=== PATIENT | female | born 1980 | race Caucasian/White ===

== ENCOUNTER 2020-04-01 11:01 | Emergency (ER) | payer OTHER ==
[~2020-04-01] VITALS: Ht 160 cm; Wt 58.0 kg
[2020-04-01 11:11] VITALS: BP 134/79
--- NOTE | 2020-04-01 11:13 | PHYS DOC ---
Past History Past Medical History: No Pertinent History Smoking: Non-smoker General Adult EDM: Chief Complaint: LOWER EXT PAIN HPI: HPI: Patient is a 40-year-old female who presents with a chief complaint of right leg pain. Patient has had right posterior knee pain has radiated to the right calf that began 3 to 4 days ago. Patient has had recent plane trip to [place]. [employer] is on oral contraceptives. Patient has no history of blood clots and does not smoke. Pain is described as a discomfort as 4 out of 10. Pain is worse with palpation. Patient denies any fevers, chills, cough or shortness of breath. Review of Systems: Review of Systems: Constitutional: Denies fever or chills Eyes: Denies change in visual acuity HENT: Denies nasal congestion or sore throat Respiratory: Denies cough or shortness of breath Cardiovascular: Denies chest pain but has mild swelling in the right leg GI: Denies abdominal pain, nausea, vomiting, bloody stools or diarrhea : Denies dysuria Musculoskeletal: Denies back pain but has right leg pain Integument: Denies rash Neurologic: Denies headache, focal weakness or sensory changes Endocrine: Denies polyuria or polydipsia Lymphatic: Denies swollen glands Psychiatric: Denies depression or anxiety Allergies: Allergies: Allergies Coded Allergies Type Severity Reaction Last Updated Verified No Known Drug Allergies 04/01/20 No Physical Exam: PE: Constitutional: Well developed, well nourished, no acute distress, non-toxic appearance. [] HENT: Normocephalic, atraumatic, bilateral external ears normal, no trismus nose normal. [] Eyes: PERRLA, EOMI, conjunctiva normal, no discharge. [] Neck: Normal range of motion, no tenderness, supple, no stridor. [] Cardiovascular:Heart rate regular rhythm, peripheral pulses are intact, cap refills less than 3 seconds Lungs & Thorax: Bilateral breath sounds clear to auscultation [] Abdomen: soft, no tenderness, no masses, no pulsatile masses. [] Skin: Warm, dry, no erythema, no rash. [] Back: No tenderness, no CVA tenderness. [] Extremities: Mild swelling and mild tenderness to the right posterior knee and right calf. Neurovascular intact distally. Skin is intact and warm and pink without signs of infection. Neurologic: Alert and oriented X 3, normal motor function, normal sensory function, no focal deficits noted. [] Psychologic: Affect normal, judgement normal, mood normal. [] Current Patient Data: Vital Signs: Vital Signs Date Time Temp Pulse Resp B/P (MAP) Pulse Ox O2 Delivery O2 Flow Rate FiO2 04/01/20 11:11 97.6 92 18 134/79 (97) 99 Room Air EKG: EKG: [] Radiology/Procedures: Radiology/Procedures: [][address] [address] IMAGING REPORT Signed PATIENT: SANJEEV MORRISON ACCOUNT: [id number] : 1980 LOCATION: ER AGE: 40 SEX: F EXAM STATUS: REG ER ORD. PHYSICIAN: ARTIS JOY MD REASON: r leg pain, recent plane trip PROCEDURE: VENOUS LOWER EXTREMITY RIGHT Examination: VENOUS LOWER EXTREMITY RIGHT History: Reason: r leg pain, recent plane trip / Spl. Instructions: / History: Comparison/Correlation: None Findings: Duplex right lower extremity ultrasound exam was performed. Compression and augmentation utilized. The right common femoral vein, femoral vein, popliteal vein, profunda femoris vein, and visualized calf veins, and left common femoral vein are unremarkable with no evidence of DVT. Incidental note is made of minimal perifascial fluid at the mid calf level. Impression: No right lower extremity DVT. Electronically signed by: Will Davis MD (04/01/2020 11:55 AM) [id number] DICTATED AND SIGNED BY: WILL DAVIS MD DATE: 04/01/20 1155 CC: ARTIS JOY MD; PCP,NO ~MTH0 0 Heart Score: Risk Factors: Risk Factors: DM, Current or recent (<one month) smoker, HTN, HLP, family history of CAD, obesity. Risk Scores: Score 0 - 3: 2.5% MACE over next 6 weeks - Discharge Home Score 4 - 6: 20.3% MACE over next 6 weeks - Admit for Clinical Observation Score 7 - 10: 72.7% MACE over next 6 weeks - Early Invasive Strategies Course & Med Decision Making: Course & Med Decision Making Pertinent Labs and Imaging studies reviewed. (See chart for details) [] 40-year-old female presents with right leg pain following a plane trip. Ultrasounds negative for DVT discussed with patient need for follow-up ultrasound in 10 days if symptoms persist. No signs of infection. No evidence of septic arthritis. Patient stable for discharge outpatient follow-up Umesh Disclaimer: Umesh Disclaimer: This electronic medical record was generated, in whole or in part, using a voice recognition dictation system. Departure Departure: Impression: Primary Impression: Right leg pain Disposition: 01 DC HOME SELF CARE/HOMELESS Condition: STABLE Referrals: PCP,NO (PCP) Family [facility] [address] [place] [address] [facility] [address] [place] [address] [facility] [address] Patient Instructions: Leg Cramps Additional Instructions: EMERGENCY DEPARTMENT GENERAL DISCHARGE INSTRUCTIONS THANK YOU for coming to [facility] Emergency Department (ED) today and trusting us with your care. We trust that you had a positive experience in our Emergency Department. If you wish to speak to the department Management you can contact the emergency department at YOUR FOLLOW UP INSTRUCTIONS ARE FOLLOWS: Do you have a private doctor? If you do not have a private doctor, please ask for a resource list of physicians or clinics that may be able to assist you with follow up care. The Emergency Physician has interpreted your x-rays. The X-ray specialist will also review them. If there is a change in the findings you will be notified in 48 hours when at all possible. A lab test or lab culture may have been done, your results will be reviewed and you will be notified if you need a change in treatment. ADDITIONAL INSTRUCTIONS AND INFORMATION Your care today has been supervised by a physician who is specially trained in emergency care. Many problems require more than one evaluation for a complete diagnosis and treatment. We recommend that you schedule your follow up appointment as recommended to ensure complete treatment of your illness or injury. If you are unable to obtain follow up care and continue to have a problem, or if your condition worsens we recommend that you return to the ED. We are not able to safely determine your condition over the phone nor are we able to give sound medical advice over the phone. For these safety reasons, if you call for medical advice we will ask you to come to the ED for further evaluation If you have any questions regarding these discharge instructions please call the ED at SAFETY INFORMATION In the interest of safety, wellness, and injury prevention; we encourage you to wear your seatbelt, if you smoke; quit smoking, and we encourage your family to use protective helmet for bicycling and other sporting events that present an increased risk for head injury. IF YOUR SYMPTOMS WORSEN OR NEW SYMPTOMS DEVELOP, OR YOU HAVE CONCERNS ABOUT YOUR CONDITION; OR IF YOUR CONDITION WORSENS WHILE YOU ARE WAITING FOR YOUR FOLLOW UP APPOINTMENT; EITHER CONTACT YOUR PRIMARY CARE DOCTOR, THE PHYSICIAN WHOSE NAME AND NUMBER YOU WERE GIVEN, OR RETURN TO THE ED IMMEDIATELY. ARTIS JOY MD Apr 01, 2020 11:13
--- NOTE | 2020-04-01 11:58 | RAD ---
Examination: VENOUS LOWER EXTREMITY RIGHT History: Reason: r leg pain, recent plane trip / Spl. Instructions: / History: Comparison/Correlation: None Findings: Duplex right lower extremity ultrasound exam was performed. Compression and augmentation utilized. The right common femoral vein, femoral vein, popliteal vein, profunda femoris vein, and visualized calf veins, and left common femoral vein are unremarkable with no evidence of DVT. Incidental note is made of minimal perifascial fluid at the mid calf level. Impression: No right lower extremity DVT. Electronically signed by: Will Colon MD (04/01/2020 11:55 AM) [id number]
== END 2020-04-01 12:20 | disposition home or self-care (01) ==
LOC: ER 11:01
DX: M79.604 Pain in right leg (principal); M25.561 Pain in right knee; R22.31 Localized swelling, mass and lump, right upper limb
CPT/HCPCS: 93971; 99284